=== PATIENT | female | born 1980 | race Two or more races ===

== ENCOUNTER 2024-05-05 15:30 | Outpatient (RCR) | payer OTHER, SELFPAY ==
--- NOTE | 2024-04-28 15:16 | PTNOTE_ITS ---
PT OP Initial Eval Patient Information Outpatient Physical Therapy Treatment Date: 04/28/24 Visit Reasons: BACK PAIN Medical Diagnosis: M51.361 Treatment Dx #1: LBP with radiculopathy Treatment Dx #2: SI joint pain Start of Care: 04/28/24 Date of Onset: 5 yrs ago Smoking Status Smoking Status: Never smoker Initial Assessment Subjective: Pt is 44 yr old female who reports LBP that runs down the L LE x5 yrs. Increased pain after prolonged sitting, and bending, lifting and twisting. She works at [employer] and sits a lot of the day at work. The pain feels like a pinch that is always in the background but can worsen and pain goes straight down the posterior LE. PMH: gastric sleeve 2022 Imaging: Xrays of L/S in EMR Early degenerative disc disease L5-S1 Pt goal: to get rid of the pain Objective: ?Trunk ArOM: ? B SB 50% of normal with pain ? Extension: 20% with pain around L4-5, L5-S1 ? Flexion: 10 from floor with muscle LBP ? B rotation: 80% with pain ? CATHIE'S: positive on L ? TTP: moderate paraspinals L5-S1 and high over L SI joint and ASIS ? Neuro: L SLR: positive for posture knee pain and back pain Assessment: Pt presents with pain over the L SI joint and positive SI joint testing with pain down L glute and LE referral pattern matching SI joint. The DDD at L5-S1 may be contributing to the pat as well. Pt may benefit from skilled therapy to meet goals and has fair rehab potential. PT recommends she buy an SI belt and was given example printout. Short Term and [employer] Goals 1. Ind with HEP 2. Decreased L LE referred pain by at least 50% frequency and intensity 3. Pt will tolerate HH chores x30 mins with <=3/10 LBP 4. Improved sitting toelrance and posture x4 hrs with <=3/10 LBP Treatment Plan ?1. Manual therapy ? 2. Therex ? 3. Modalities as indicated, moist heat, ice, estim Frequency and Duration: 1-2x a week for 12 visits plus the evaluation Certification Dates: 04/28/24 to 07/26/24 Procedure Charges OP PT Eval Mod Complex 30 minutes: Yes
--- NOTE | 2024-05-03 08:51 | PT.ODAYNRPT ---
PT Outpatient Daily Note OP Daily Note Outpatient Physical Therapy Treatment Date: 05/03/24 Visit Reasons: BACK PAIN Subjective: Pt c/o low back pain and L glute pain. Objective: Please se flow sheet for ther ex list. Assessment: Pt instructed on EDIL and given for HEP, pt able to replicate with good technique. Plan: Assess response to treatment. Length of Time (minutes) of Treatment: 30 Minutes Procedure Charges Therapeutic Exercise 30 minutes: Yes
--- NOTE | 2024-05-05 16:24 | PT.ODAYNRPT ---
PT Outpatient Daily Note OP Daily Note Outpatient Physical Therapy Treatment Date: 05/05/24 Visit Reasons: BACK PAIN Subjective: Pt shared she started using her SI belt yesterday and felt relieve wearing it. Objective: Please see flow sheet for ther ex list. Assessment: Added interventions completed with good tolerance. Plan: Continue with POC. Length of Time (minutes) of Treatment: 30 Minutes Procedure Charges Therapeutic Exercise 30 minutes: Yes
== END 2024-05-05 23:59 | disposition home or self-care (01) ==
LOC: CPTX 15:30
PROVIDERS: PCP Nurse Practitioner Family; Referring Provider Nurse Practitioner Family; Visit Provider Nurse Practitioner Family
DX: M51.16 Intervertebral disc disorders with radiculopathy, lumbar region (principal)
CPT/HCPCS: 97110; 97162

== ENCOUNTER 2024-05-23 08:00 | Outpatient (RCR) | payer OTHER, SELFPAY ==
--- NOTE | 2024-05-11 08:49 | PT.ODAYNRPT ---
PT Outpatient Daily Note OP Daily Note Outpatient Physical Therapy Treatment Date: 05/11/24 Visit Reasons: Back pain Subjective: Less back pain while wearing SI belt. Some relief of L sided LBP with therapy stretches Objective: See f/S for therex Assessment: Improving core activation with therex. Increased pain with prone lying consistent with SI joint pain Plan: Continue per POC Length of Time (minutes) of Treatment: 30 Minutes Procedure Charges Therapeutic Exercise 30 minutes: Yes
--- NOTE | 2024-05-15 09:43 | PT.ODAYNRPT ---
PT Outpatient Daily Note OP Daily Note Outpatient Physical Therapy Treatment Date: 05/15/24 Visit Reasons: Back pain Subjective: Less back pain while wearing SI belt. Some relief of L sided LBP with therapy stretches Objective: See f/S for therex Assessment: Improving core activation with therex. Increased pain with prone lying consistent with SI joint pain Plan: Continue per POC Length of Time (minutes) of Treatment: 30 Minutes Procedure Charges Therapeutic Exercise 30 minutes: Yes
--- NOTE | 2024-05-23 08:27 | PT.ODS1RPT ---
PT OP Progress/Discharge Note Date of Service: 05/23/24 Progress Note/DC Note Progress Note/Discharge Note: DC Note Patient Information Visit Reasons: Back pain Service Continue Service or Discharge: Discharge Status Subjective: Less back pain while wearing SI belt. Good relief of L sided LBP with therapy and it's not hurting much anymore and is prepared to D/C from therapy. Objective: See f/S for therex Trunk AROM: FB: 8 from floor without pain B rotation: 80% without pain TTP: min to none of L5-S1 paraspinals Assessment: Pt has attended 5/12 Rx sessions with very good progress to meet all goals. She has improved HH chore tolerance to over 1 hr and sitting to 4 hrs with <=3/10 pain to meet those goals. Pt has decreased L LE referred pain by at least 50% and has improving core activation with therex. Thank you for your referrals. Plan: D/C with updated HEP Procedure Charges Therapeutic Exercise 30 minutes: Yes
== END 2024-06-02 23:59 | disposition home or self-care (01) ==
LOC: CPTX 08:00
PROVIDERS: PCP Nurse Practitioner Family; Referring Provider Nurse Practitioner Family; Visit Provider Nurse Practitioner Family
DX: M51.17 Intervertebral disc disorders with radiculopathy, lumbosacral region (principal)
CPT/HCPCS: 97110

== ENCOUNTER 2024-06-06 11:24 | Emergency (ER) | payer OTHER, SELFPAY ==
[2024-06-06 11:33] VITALS: BP 149/80; PULSE 79; RESP 20; TEMP 36.9; O2SAT 98; BMI 29.2
--- NOTE | 2024-06-06 11:46 | XR_ITS ---
Examination: CT abdomen with intravenous contrast CT pelvis with intravenous contrast 2-D coronal reconstructions 2-D sagittal reconstructions Date and time of exam:June 06, 2024 at 1342 hours INDICATIONS: Onset right-sided flank pain today. CTDI: vol (mGy) 7.72 DLP: (mGycm) 421 Technique: Multiple axial sections of the abdomen and pelvis have been obtained. 64 slice high-resolution scanner used. 3 mm axial sections have been obtained, post intravenous injection 60 cc [id number] 2-D sagittal, coronal reconstructions obtained. Low dose protocols were performed. One or more of the following dose reduction techniques were used; automated exposure control, adjustment of the mA and/or KV according to patient size, use of iterative reconstruction technique. Findings: Multiple gallstones No focal liver or splenic lesion No pancreatic or adrenal mass No renal or ureteral calculi, no hydronephrosis Normal appendix Aorta normal size No bowel obstruction Intrauterine device satisfactory position No bladder mass or bladder calculi Intact osseous structures IMPRESSION: Cholelithiasis No renal or ureteral calculi, no hydronephrosis No bladder mass or bladder calculi Normal appendix
--- NOTE | 2024-06-06 11:46 | PD.EDRME ---
Rapid Medical Screening Exam [facility] Arrival date/time: 06/06/24 11:24 44-year-old female with no known medical history presents to the emergency room with a chief complaint of 10 out of 10 right upper quadrant abdominal pain and tenderness x 1 day. Patient states she was seen at [facility] and was discharged with gallstones. Patient states her pain has significantly improved she has nauseous and states they instructed her to return to the emergency room if her symptoms get worse I have greeted and performed a focused initial assessment of this patient. A comprehensive ED assessment and evaluation of the patient, analysis of all test results, and completion of the medical decision making process will be conducted by additional ED providers. Chief Complaint: Abdominal Pain Time Seen by Provider: 06/06/24 11:27 Vital signs: Vital Signs Temperature 98.5 F 06/06/24 11:33 Pulse Rate 79 06/06/24 11:33 Respiratory Rate 20 06/06/24 11:33 Blood Pressure 149/80 H 06/06/24 11:33 Pulse Oximetry (%) 98 06/06/24 11:33 Oxygen Delivery Method Room Air 06/06/24 11:33 Vital signs reviewed by provider: Yes
[2024-06-06] MEDS: HYDROcodone/APAP 5/325 TABLET 1 TAB PO (11:52)
[2024-06-06] MEDS: ONDANSETRON ODT 4 MG TABRAP PO (11:52)
[2024-06-06 11:59] LABS: Collection Type, Urine Clean Catch
[2024-06-06 12:11] LABS: Bacteria,Urine Rare; Bilirubin,Urine Negative (Negative); Blood,Urine 1+ (Negative); Clarity,Urine Clear (Clear/Hazy); Color,Urine Yellow (Lt Yel-Yel); Glucose, Urine Negative (Negative); Ketones,Urine Negative (Negative); Leukocyte Esterase,Urine Positive (Negative); Nitrite,Urine Negative (Negative); PH,Urine 6.5 (5.0-7.0); Protein,Urine Negative (Neg - Trace); RBC,Urine 8 /hpf (0-3); Specific Gravity,Urine 1.021 (1.001-1.035); Squamous Epithelial Cell,Urine 1 /hpf (0-5); Urobilinogen,Urine Negative mg/dL (0.0-1.0); WBC,Urine 1 /hpf (0-5)
[2024-06-06 12:15] LABS: HCG Qualitative,Urine Negative
[2024-06-06 12:31] LABS: Basophils % (Auto) 1 % (0-2.5); Eosinophils # (Auto) 0.1 Thou/mm3 (0.0-0.5); Eosinophils % (Auto) 1 % (0-10); Hematocrit 40.6 % (36.0-46.0); Hemoglobin 13.8 g/dL (12.0-16.0); Immature Granulocytes % (Auto) 0 % (0-0); Immature Granulocytes Auto 0.02 Thou/mm3 (0.00-0.00); Lymphocytes # (Auto) 2.1 Thou/mm3 (1.0-4.8); Lymphocytes % (Auto) 30 % (10-50); Mean Corpuscular Hemoglobin 31.9 pg (25.0-35.0); Mean Corpuscular Volume 94 fL (80-100); Monocytes # (Auto) 0.5 Thou/mm3 (0.0-0.8); Monocytes % (Auto) 7 % (0-12); Neutrophils # (Auto) 4.5 Thou/mm3 (1.8-7.7); Neutrophils % (Auto) 62 % (37-80); Nucleated Red Blood Cell % 0 /100 WBC (0); Platelet Count 364 Thou/mm3 (140-440); RDW Standard Deviation 41.8 fL (36.4-46.3); Red Blood Count 4.33 Miln/mm3 (4.00-5.20); White Blood Count 7.2 Thou/mm3 (3.6-11.0)
[2024-06-06 12:50] LABS: Alanine Aminotransferase 122 U/L (10-49); Albumin, Serum 4.4 gm/dL (3.5-5.0); Albumin/Globulin Ratio 1.6 (1.2-2.2); Alkaline Phosphatase 100 U/L (46-116); Anion Gap 8 (7-16); Aspartate Amino Transferase 239 U/L (0-34); BUN/Creatinine Ratio 18 Ratio (12-20); Bilirubin,Total 0.6 mg/dL (0.3-1.2); Blood Urea Nitrogen 11 mg/dL (9-23); Calcium 9.9 mg/dL (8.3-10.6); Calcium (Corrected) 9.9 mg/dL (8.5-10.1); Carbon Dioxide 27.3 mMol/L (20.0-31.0); Chloride 107 mMol/L (98-107); Creatinine (Component) 0.6 mg/dL (0.6-1.3); Estimated Creatinine Clearance 101.9 mL/min (>60); Globulin 2.8 gm/dL (2.3-3.5); Glucose 94 mg/dL (74-106); Lipase 39 U/L (12-53); Osmolality,Calculated 282 (275-295); Potassium 3.6 mMol/L (3.4-5.1); Sodium 142 mMol/L (136-145); Total Protein 7.2 gm/dL (5.7-8.2); eGFR > 60 See Note
[2024-06-06 13:55] VITALS: BP 131/73; PULSE 70; RESP 18; TEMP 36.3; O2SAT 99
--- NOTE | 2024-06-06 14:32 | PD.EDABDPN ---
ED Abdominal Pain RME/HPI General Chief Complaint: Abdominal Pain Stated complaint: PAIN UPPER ABD RADIATING TO BACK, COMES & GOES Time seen by provider: 06/06/24 11:27 Arrival date/time: 06/06/24 11:24 44-year-old female with no known medical history presents to the emergency room with a chief complaint of 10 out of 10 right upper quadrant abdominal pain and tenderness x 1 day. Source: patient Mode of arrival: ambulatory Limitations: no limitations RME / HPI RME / HPI narrative: 06/06/24 11:24 44-year-old female with no known medical history presents to the emergency room with a chief complaint of 10 out of 10 right upper quadrant abdominal pain and tenderness x 1 day. Patient states she was seen at [facility] and was discharged with gallstones. Patient states her pain has significantly improved she has nauseous and states they instructed her to return to the emergency room if her symptoms get worse I have greeted and performed a focused initial assessment of this patient. A comprehensive ED assessment and evaluation of the patient, analysis of all test results, and completion of the medical decision making process will be conducted by additional ED providers. Related Data Previous Rx's ?Medication ?Instructions ?Recorded hydrocodone 5 mg-acetaminophen 325 1 tab PO BID PRN pain #10 tabs 06/06/24 mg tablet Allergies Allergy/AdvReac Type Severity Reaction Status Date / Time No Known Allergies Allergy Verified 06/06/24 11:29 Review of Systems Review of Systems Systems Reviewed: All systems reviewed, normal except as documented Constitutional Constitutional: Reports system reviewed and no additional complaints, except as documented, Denies fatigue, Denies fever(s), Denies headache(s) and Denies weakness Eyes Eyes: Reports system reviewed and no additional complaints, except as documented, Denies blurry vision and Denies change in vision ENT Ears, Nose, Mouth, and Throat: Reports system reviewed and no additional complaints, except as documented, Denies otalgia, Denies headache(s), Denies nasal congestion, Denies throat swelling and Denies vertigo Cardiovascular Cardiovascular: Reports system reviewed and no additional complaints, except as documented, Denies chest pain, Denies dyspnea and Denies dyspnea on exertion Respiratory Respiratory: Reports system reviewed and no additional complaints, except as documented, Denies chest congestion, Denies cough, Denies dyspnea, Denies dyspnea on exertion and Denies wheezing Gastrointestinal Gastrointestinal: Reports system reviewed and no additional complaints, except as documented, Reports abdominal pain, Reports cramping, Reports dyspepsia and Reports nausea Genitourinary Genitourinary: Reports system reviewed and no additional complaints, except as documented Musculoskeletal Musculoskeletal: Reports system reviewed and no additional complaints, except as documented and Denies back pain Integumentary/Breasts Skin/Breast: Reports system reviewed and no additional complaints, except as documented and Denies wounds Neurologic Neurologic: Reports system reviewed and no additional complaints, except as documented, Denies confusion, Denies headache(s), Denies lack of coordination, Denies vertigo and Denies weakness Psychiatric Psychiatric: Reports system reviewed and no additional complaints, except as documented, Denies anxiety, Denies confusion, Denies depression, Denies paranoia, Denies suicidal ideation and Denies tactile hallucinations Endocrine Endocrine: Reports system reviewed and no additional complaints, except as documented and Denies fatigue Hematologic/Lymphatic Hematologic/Lymphatic: Reports system reviewed and no additional complaints, except as documented and Denies lymphadenopathy Allergic/Immunologic Allergic/Immunologic: Reports system reviewed and no additional complaints, except as documented, Denies throat swelling, Denies urticaria and Denies wheezing ED Exam General Limitations: Present no limitations General appearance: Present alert and in no apparent distress Head Head exam: Present atraumatic Eye Eye exam: Present normal appearance, PERRL and EOMI ENT ENT exam: Present normal exam, normal oropharynx and mucous membranes moist Neck Neck exam: Present normal inspection, full ROM and trachea midline Chest Chest inspection: Present normal inspection and symmetric chest wall rise Respiratory Respiratory exam: Present normal lung sounds bilaterally Cardiovascular Cardiovascular exam: Present regular rate, normal rhythm and normal heart sounds Abdominal Exam Abdominal exam: Present soft, tenderness, normal bowel sounds and Banegas's sign; Absent distention, guarding, rebound or rigidity Abdominal tenderness: Present RUQ and moderate Extremities Exam Extremities exam: Present normal inspection and full ROM Back Exam Back exam: Present normal inspection and full ROM Neurological Exam Neurological exam: Present alert, oriented X3 and CN II-XII intact Psychiatric Psychiatric exam: Present normal affect and normal mood Skin Skin exam: Present warm, dry, intact and normal color Course Quality Measures none Orders Category Date Time Status CT Screening NOW Care 06/06/24 11:[address] abdomen pelvis w con Stat Exams 06/06/24 11:46 Completed CBC Stat Lab 06/06/24 12:00 Completed CMP [Comprehensive Metabolic Panel] Stat Lab 06/06/24 12:00 Completed HCG Qualitative,Urine Stat Lab 06/06/24 11:54 Completed Lipase Stat Lab 06/06/24 12:00 Completed UA [Urinalysis] Stat Lab 06/06/24 11:54 Completed Urine Culture Stat Lab 06/06/24 11:54 Received HYDROcodone*/APAP 5/325 [[place] 5/325] Med 06/06/24 11:46 Discontinued 1 tab PO X1 ONE Ondansetron Odt [Zofran Odt] Med 06/06/24 11:46 Discontinued 4 mg PO X1 ONE Vital Signs Vital signs: Vital Signs Temperature 98.5 F 06/06/24 11:33 Pulse Rate 79 06/06/24 11:33 Respiratory Rate 20 06/06/24 11:33 Blood Pressure 149/80 H 06/06/24 11:33 Pulse Oximetry (%) 98 06/06/24 11:33 Oxygen Delivery Method Room Air 06/06/24 11:33 O2 saturation 98% within normal limits Abdominal Pain MDM MDM Narrative MDM Narrative:: 44-year-old female with no known medical history presents to the emergency room with a chief complaint of 10 out of 10 right upper quadrant abdominal pain and tenderness x 1 day. Patient is hemodynamically stable and in no apparent distress Physical examination shows pain and tenderness to the right upper quadrant. The patient has a positive Banegas sign. Patient states she was seen at [facility] yesterday and had a full workup which found gallstones. Patient states that since she was discharged her pain has gotten worse. A CT of the abdomen and pelvis was completed and was negative for any cholecystitis. The patient has multiple gallstones. CBC CMP are within normal limits. Patient was discharged and educated to follow-up with her primary care provider for outpatient removal of this gallbladder. Patient was instructed to return the emergency room for any evidence of worsening signs or symptoms Patient data External records reviewed:: [facility] previous records Clinical information provided by:: patient Social determinants that could affect healthcare access:: none Patient has the following chronic illnesses:: No chronic illness How is presenting disease/condition affected by chronic disease/condition?: no chronic disease Evaluation data The following diagnostics were reviewed and interpreted by me:: lab results and radiology exam(s) Lab and/or radiology exams considered but not ordered:: Labs and radiology exams considered and ordered Interpretation Summary: CT abdomen and pelvis-Findings: Multiple gallstones No focal liver or splenic lesion No pancreatic or adrenal mass No renal or ureteral calculi, no hydronephrosis Normal appendix Aorta normal size No bowel obstruction Intrauterine device satisfactory position No bladder mass or bladder calculi Intact osseous structures IMPRESSION: Cholelithiasis No renal or ureteral calculi, no hydronephrosis No bladder mass or bladder calculi Normal appendix Medications / Prescriptions Medications or Prescriptions considered but not ordered:: Medication given Medication administrations:: Medication Administration History Discontinued Medications Hydrocodone Bitart/Acetaminophen (Hydrocodone/Apap 5/325 Tablet) 1 tab PO X1 ONE Stop: 06/06/24 11:47 Last Admin: 06/06/24 11:52 Dose: 1 tab Documented By: JÚNIOR Ondansetron HCl (Ondansetron Odt 4 Mg Tabrap) 4 mg PO X1 ONE; Protocol Stop: 06/06/24 11:47 Last Admin: 06/06/24 11:52 Dose: 4 mg Documented By: JÚNIOR Medication given Consultations Consultation(s) initiated? (list below): No Diagnosis Differential diagnosis abdominal pain: abdominal pain, acute appendicitis, gastroenteritis and other (Cholelithiasis/cholecystitis) Most likely diagnosis given after review of the tests above:: Cholelithiasis Admission Indicated Admission indicated?: not indicated Admission Request Was there a request for admission?: No Disposition Plan Disposition Plan: Discharge Discharge Attestation Discharge Attestation: The patient and all family members were given an opportunity to ask questions and understood the discharge instructions. Discharge instructions specifically effects, indications for sooner follow up or return to the emergency department, and the expected course of current diagnosis. Patient condition: Stable Discharge Plan Plan Patient Disposition: HOME (Self Care) Disposition Comment: Stable Prescriptions/Referrals Prescriptions/Med Rec: New hydrocodone-acetaminophen 5-325 mg tablet 1 tab PO BID MDD 10mg PRN (Reason: pain) Qty: 10 0RF Referrals: Laura King NP [Primary Care Provider] - In 1 week Problem List Clinical Impression: Cholelithiasis Patient/Caregiver Discharge Instructions Education Materials: Discharge Instructions for ..., ED Gallstones with Biliary Colic Additional Instructions: Please follow-up with your primary care provider in the next 24 to 48 hours. At this time your CT of your abdomen and pelvis does not show an acute infection or inflammation of your gallbladder. There is still stones in the gallbladder that are causing your pain. Medication was sent to your pharmacy please pick it up and take it as indicated. Please make a referral for general surgeon for outpatient removal of this gallbladder. For any evidence of worsening signs or symptoms return to the emergency room immediately Print Language: Danish Stand Alone Forms: Sandra Award Info., Patient Portal Info Letter PA/SHLOMO Supervising Physician PA/SHLOMO Supervising Physician: Dr. Leonard
== END 2024-06-06 15:20 | disposition home or self-care (01) ==
PROVIDERS: Nurse Practitioner Family; Emergency Provider Emergency Medicine; PCP Nurse Practitioner Family
DX: K80.20 Calculus of gallbladder without cholecystitis without obstruction (principal)
CPT/HCPCS: 36415; 74177; 80053; 81001; 81025; 83690; 85025; 87086; 99285; A4649; Q0162; Q9967; A9270

== ENCOUNTER → 2024-07-11 | Outpatient (CLI) | payer OTHER, SELFPAY ==
[2024-07-11 08:41] LABS: Basophils # (Auto) 0.1 Thou/mm3 (0.0-0.2); Basophils % (Auto) 1 % (0-2.5); Eosinophils % (Auto) 1 % (0-10); Hematocrit 39.2 % (36.0-46.0); Hemoglobin 13.2 g/dL (12.0-16.0); Immature Granulocytes % (Auto) 0 % (0-0); Immature Granulocytes Auto 0.01 Thou/mm3 (0.00-0.00); Lymphocytes # (Auto) 2.1 Thou/mm3 (1.0-4.8); Lymphocytes % (Auto) 42 % (10-50); Mean Corpuscular HGB Conc 33.7 g/dl (31.0-37.0); Mean Corpuscular Hemoglobin 32.3 pg (25.0-35.0); Mean Corpuscular Volume 96 fL (80-100); Monocytes # (Auto) 0.4 Thou/mm3 (0.0-0.8); Monocytes % (Auto) 7 % (0-12); Neutrophils # (Auto) 2.4 Thou/mm3 (1.8-7.7); Neutrophils % (Auto) 49 % (37-80); Nucleated Red Blood Cell % 0 /100 WBC (0); Platelet Count 339 Thou/mm3 (140-440); RDW Standard Deviation 42.3 fL (36.4-46.3); Red Blood Count 4.09 Miln/mm3 (4.00-5.20); White Blood Count 4.9 Thou/mm3 (3.6-11.0)
[2024-07-11 08:48] LABS: Glucose Estimated Average 94 mg/dL (80-131); Hemoglobin A1C 4.9 % Hgb (4.8-6.0)
[2024-07-11 08:56] LABS: Ferritin 50 ng/mL (7.3-270.7); Iron 135 mcg/dL (50-170); Parathyroid Hormone Intact 35.1 pg/ml (18.5-88.0); Total Iron Binding Capacity 332 mcg/dL (250-425)
[2024-07-11 09:05] LABS: Folate 8.87 ng/mL (>5.38); Vitamin B12 658 pg/mL (211-911)
[2024-07-11 09:08] LABS: Alanine Aminotransferase 8 U/L (10-49); Albumin, Serum 4.2 gm/dL (3.5-5.0); Albumin/Globulin Ratio 1.7 (1.2-2.2); Alkaline Phosphatase 85 U/L (46-116); Anion Gap 6 (7-16); Aspartate Amino Transferase < 10 U/L (0-34); BUN/Creatinine Ratio 22 Ratio (12-20); Bilirubin,Total 0.6 mg/dL (0.3-1.2); Blood Urea Nitrogen 13 mg/dL (9-23); Calcium 9.2 mg/dL (8.3-10.6); Calcium (Corrected) 9.2 mg/dL (8.5-10.1); Carbon Dioxide 27.7 mMol/L (20.0-31.0); Chloride 107 mMol/L (98-107); Cholesterol 155 mg/dL (132-200); Creatinine (Component) 0.6 mg/dL (0.6-1.3); Globulin 2.5 gm/dL (2.3-3.5); Glucose 82 mg/dL (74-106); HDL Cholesterol 51 mg/dL (40-60); LDL Cholesterol,Calculated 87 mg/dL (0-130); Osmolality,Calculated 280 (275-295); Potassium 3.9 mMol/L (3.4-5.1); Sodium 141 mMol/L (136-145); Thyroid Stimulating Hormone 0.68 uIU/mL (0.55-4.78); Total Protein 6.7 gm/dL (5.7-8.2); Triglycerides 85 mg/dL (30-150); eGFR > 60 See Note
[2024-07-17 06:41] LABS: Vitamin D,1,25 (OH)2,Total 46 pg/mL (18-72); Vitamin D2, 1,25 (OH)2 <8 pg/mL; Vitamin D3, 1,25 (OH)2 46 pg/mL
[2024-07-21 06:58] LABS: Vitamin B1 (Thiamine)* 6 nmol/L (8-30); Vitamin B6, Plasma* 11.8 ng/mL (2.1-21.7)
== END | disposition home or self-care (01) ==
PROVIDERS: PCP Family Medicine; Referring Provider Nurse Practitioner Primary Care; Visit Provider Nurse Practitioner Primary Care
DX: E55.9 Vitamin D deficiency, unspecified (principal); K91.2 Postsurgical malabsorption, not elsewhere classified; E66.811 Obesity, class 1; Z90.3 Acquired absence of stomach [part of]
CPT/HCPCS: 36415; 80053; 80061; 82607; 82652; 82728; 82746; 83036; 83540; 83550; 83970; 84207; 84425; 84443; 85025

== ENCOUNTER 2024-07-20 07:30 | Day surgery (SDC) | payer OTHER, SELFPAY ==
[2024-07-19 07:15] VITALS: BMI 29.4
[2024-07-19 09:22] LABS: Basophils # (Auto) 0.1 Thou/mm3 (0.0-0.2); Basophils % (Auto) 1 % (0-2.5); Eosinophils # (Auto) 0.1 Thou/mm3 (0.0-0.5); Eosinophils % (Auto) 1 % (0-10); Hematocrit 39.7 % (36.0-46.0); Hemoglobin 13.5 g/dL (12.0-16.0); Immature Granulocytes % (Auto) 0 % (0-0); Immature Granulocytes Auto 0.01 Thou/mm3 (0.00-0.00); Lymphocytes # (Auto) 2.7 Thou/mm3 (1.0-4.8); Lymphocytes % (Auto) 48 % (10-50); Mean Corpuscular Hemoglobin 32.3 pg (25.0-35.0); Mean Corpuscular Volume 95 fL (80-100); Monocytes # (Auto) 0.4 Thou/mm3 (0.0-0.8); Monocytes % (Auto) 8 % (0-12); Neutrophils # (Auto) 2.4 Thou/mm3 (1.8-7.7); Neutrophils % (Auto) 42 % (37-80); Nucleated Red Blood Cell % 0 /100 WBC (0); Platelet Count 367 Thou/mm3 (140-440); RDW Standard Deviation 42.6 fL (36.4-46.3); Red Blood Count 4.18 Miln/mm3 (4.00-5.20); White Blood Count 5.8 Thou/mm3 (3.6-11.0)
[2024-07-19 09:47] LABS: Alanine Aminotransferase < 7 U/L (10-49); Albumin, Serum 4.2 gm/dL (3.5-5.0); Albumin/Globulin Ratio 1.5 (1.2-2.2); Alkaline Phosphatase 89 U/L (46-116); Anion Gap 7 (7-16); Aspartate Amino Transferase < 10 U/L (0-34); BUN/Creatinine Ratio 17 Ratio (12-20); Beta HCG,Quantitative < 1 mIU/mL (<5.0); Bilirubin,Total 0.5 mg/dL (0.3-1.2); Blood Urea Nitrogen 10 mg/dL (9-23); Calcium 9.2 mg/dL (8.3-10.6); Calcium (Corrected) 9.2 mg/dL (8.5-10.1); Chloride 107 mMol/L (98-107); Creatinine (Component) 0.6 mg/dL (0.6-1.3); Estimated Creatinine Clearance 102.1 mL/min (>60); Globulin 2.8 gm/dL (2.3-3.5); Glucose 92 mg/dL (74-106); Osmolality,Calculated 282 (275-295); Sodium 142 mMol/L (136-145); eGFR > 60 See Note
[2024-07-20] VITALS (11 sets, daily range): BP systolic 91–123; BP diastolic 52–94; PULSE 61–90; RESP 10–20; TEMP 36.3–36.6; O2SAT 95–100; BMI 29.0
--- NOTE | 2024-07-20 08:27 | SUR.PREOP ---
STRAW HAT BRIM RAISER OPERATOR Rd made aware that patient had her Wegovy injection yesterday. States she was not made aware to hold medication. Rd came in to speak with patient. Order for Reglan IV received.
[2024-07-20] MEDS: METOCLOPRAMIDE INJ 5 MG/ML VIAL 2 ML 10 MG IV (08:33)
--- NOTE | 2024-07-20 10:09 | PD.SUROPNT ---
Date of Procedure 07/20/24 Pre Op Diagnosis Symptomatic cholelithiasis Post Op Diagnosis Cholelithiasis with cholecystitis Procedure Laparoscopic cholecystectomy Findings Mildly distended gallbladder with gallstones and chronic cholecystitis Procedure Description Patient was brought into the operating room in supine position. After administration of general endotracheal anesthesia abdomen was prepped and draped in standard surgical manner. A Veress needle was inserted through the umbilicus and pneumoperitoneum was obtained up to 15 mmHg. The Veress needle was then removed, a 5 mm infraumbilical incision was made and the 5mm trocar was inserted. Laparoscopic camera was placed. Under direct visualization a laparoscopic camera a 10 mm trocar was placed in subxiphoid and two 5 mm trocars placed in right upper quadrant. The gallbladder was identified and was noted to be mildly distended with gallstones and chronic cholecystitis. It was retracted cephalad and laterally. Dissection started near the infundibulum of gallbladder where cystic duct and gallbladder junction clearly identified. The cystic duct was circumferentially dissected off the peritoneum and surrounding inflammatory tissue. The critical view of safety was clearly demonstrated. Cystic duct was then divided between 2 endoclips proximally and one distally. The cystic artery was similarly dissected and divided. The gallbladder was then from the liver bed using electrocautery. The gallbladder was then placed inside an Endo Catch and removed from the abdomen utilizing subxiphoid trocar site. The area was copiously and thoroughly washed and irrigated, all the fluid was suctioned and the suction fluid returned clear. Hemostasis achieved using electrocautery. Endoclips noted be in place and intact without any bleeding or any leakage. Hemostasis was adequate and satisfactory. The subxiphoid trocar sites fascial defect was closed with 0 Vicryl using Endo Closure device. Instruments and trocars removed, pneumoperitoneum was evacuated and the incisions closed with 4-0 Monocryl in subcuticular fashion. Instrument needle and sponge counts were all reported to be correct X2. Patient tolerated the procedure well, was extubated, breathing spontaneously and without difficulty and was transferred to postanesthesia care in stable condition. Anesthesia GETA and local Pathology / specimen Other (Gallbladder and contents) Estimated Blood Loss 10 Condition Stable Disposition PACU Surgeon Christa Goodrich MD Surgical Staff Operation Date: 07/20/24 09:45 Case Staff RIB TRIM SEPARATOR: Guanakito Burt RNmotor vehicle emissions inspector: Mag Welch
--- NOTE | 2024-07-20 10:25 | SUR.PHASEI ---
pt arrived to PACU via gurney with oral airway present, breathing unalbored, dressing to abdomen clean, dry, and intact, report from Madelin STACY, Nicholas PINEDA, and Rd FRAZIER
[2024-07-20] MEDS: fentaNYL CIT INJ 50 mCg/ML AMP 2ML IV ×2 (11:01→11:47)
[2024-07-20] MEDS: ACETAMINOPHEN IVPB 1,000 MG/100 ML VIAL 250 MG IV (11:02)
--- NOTE | 2024-07-20 11:40 | SUR.PHASEII ---
1140: received report from REGIS Stauffer. pt able to open eyes when called her name but drifts back to sleep. no s/s of resp. distress or discomfort. dermabond to abdomen x4 clean, dry and intact.
--- NOTE | 2024-07-20 12:00 | SUR.PHASEII ---
1200: pt tolerate fluid well.
--- NOTE | 2024-07-20 12:35 | SUR.PHASEII ---
1217: pt disconnected from monitors, dressed, taking sips of water without difficulty swallowing, report from REGIS Head 1230:discharge instructions given with family member present, all questions answered 1235: pt discharged via wheelchair with all belongings and copies of discharge paperwork.
--- NOTE | 2024-07-20 12:40 | SUR.PHASEII ---
report to REGIS Head
== END 2024-07-20 12:35 | disposition home or self-care (01) ==
PROVIDERS: PCP Nurse Practitioner Family; Referring Provider Surgery; Visit Provider Surgery
PROC: 0FT44ZZ Resection of Gallbladder, Percutaneous Endoscopic Approach (ICD-10-PCS; CPT 47562; principal; 2024-07-20 09:30)
DX: K80.10 Calculus of gallbladder with chronic cholecystitis without obstruction (principal)
CPT/HCPCS: 47562; 36415; 80053; 84702; 85025; A4217; A4649; J0131; J0330; J2250; J2405; J2704; J2765; J3010; J3490; J1596

== ENCOUNTER → 2024-11-01 | Outpatient (CLI) | payer OTHER, SELFPAY ==
--- NOTE | 2024-11-01 15:15 | XR_ITS ---
Examination: Screening digital mammography, bilateral Computer aided detection 3-D breast Tomosynthesis, bilateral Date and time of exam: November 01, 2024 1532 hours Compared to mammograms dating to thousand 22 Indication: Screening, left 6 months Technique: Nonmagnified MLO, CC views of the breasts to been obtained, reconstructed from 3-D Tomosynthesis images. R2 computer aided detection program utilized for evaluation of suspicious masses and/or abnormal calcifications. 3-D Tomosynthesis images obtained. Findings: [Heterogeneously dense, small masses Benign calcifications. No suspicious masses Impression: BI-RADS Category 0: Incomplete: Need additional imaging evaluation Given the patient's presentation, recommend bilateral breast sonography follow-up
== END | disposition home or self-care (01) ==
LOC: CDIM 15:15
PROVIDERS: PCP Nurse Practitioner Family; Referring Provider Nurse Practitioner Family; Visit Provider Nurse Practitioner Family
DX: Z12.31 Encounter for screening mammogram for malignant neoplasm of breast (principal); R92.8 Other abnormal and inconclusive findings on diagnostic imaging of breast
CPT/HCPCS: 77063; 77067

== ENCOUNTER → 2024-11-29 | Outpatient (CLI) | payer OTHER, SELFPAY ==
--- NOTE | 2024-11-29 16:38 | XR_ITS ---
Examination: Breast ultrasound complete, bilateral Date and time of exam: November 29, 2024, 1641 hours INDICATIONS: Bilateral breast tenderness one month, left breast lump noticed beginning one month ago Technique: Real-time grayscale ultrasonographic imaging bilateral breasts, including all 4 quadrants as well as nipple retroareolar and axillary regions. Findings: Sonographic images right breast Multiple benign cysts, subcentimeter No solid nodules Sonographic images left breast Multiple benign cysts subcentimeter, No solid nodules IMPRESSION: BI-RADS Category 2: Benign findings
== END | disposition home or self-care (01) ==
PROVIDERS: PCP Nurse Practitioner Family; Referring Provider Nurse Practitioner Family; Visit Provider Nurse Practitioner Family
DX: R92.30 Dense breasts, unspecified (principal)
CPT/HCPCS: 76641

== ENCOUNTER → 2025-01-31 | Outpatient (CLI) | payer OTHER, SELFPAY ==
--- NOTE | 2025-01-31 14:30 | XR_ITS ---
EXAMINATION: Ultrasound soft tissue extremity left groin TECHNIQUE: Grayscale sonographic images soft tissue left groin Date and time: January 31, 2025, 1431 hours INDICATION: Palpable lump and tenderness in the left groin noticed beginning 2 weeks ago. FINDINGS: Lymph nodes in left groin 10 x 10 mm, 8 x 8 mm IMPRESSION: Nonspecific left groin lymphadenopathy, no hernia defect noted
== END | disposition home or self-care (01) ==
PROVIDERS: PCP Nurse Practitioner Family; Referring Provider Nurse Practitioner Family; Visit Provider Nurse Practitioner Family
DX: R59.0 Localized enlarged lymph nodes (principal)
CPT/HCPCS: 76882